=== PATIENT | female | born 1970 | race Caucasian/White ===

== ENCOUNTER → 2020-07-26 | Outpatient (CLI) | payer OTHER ==
--- NOTE | 2020-07-26 15:45 | RAD ---
EXAM: Right breast ultrasound. HISTORY: Palpable focus right breast. COMPARISON: Prior outside mammography not currently available. FINDINGS: Sonography of the right breast was performed at the site of palpable concern. This reveals a simple benign-appearing cyst at the 10:00 position 10 cm from the nipple, measuring 11 x 8 x 10 mm. There is no suspicious finding at the palpable focus. Images of the right axilla reveal a prominent lymph node measuring 19 x 8 x 13 mm. Its cortex is prom inent at 4 mm. There is a fatty hilus. IMPRESSION: 1. BI-RADS Category 0: Needs additional imaging evaluation. Prior imaging will be obtained and an add endum issued. 2. Recommend ongoing clinical follow-up of palpable foci. 3 Correlate for regional inflammation as a cause for a mildly prominent right axillary lymph node. Th is could be followed sonographically in 3 months to confirm stability if the diagnosis remains unclea r. Electronically signed by: Destiny Pace MD (07/26/2020 3:43 PM) [id number]
== END ==
LOC: US 15:02
PROVIDERS: ATTEND Family Medicine Sports Medicine
DX: N60.11 Diffuse cystic mastopathy of right breast (principal); N63.10 Unspecified lump in the right breast, unspecified quadrant
CPT/HCPCS: 76641